=== PATIENT | female | born 1970 | race Caucasian/White ===

== ENCOUNTER 2023-02-02 14:09 | Observation (INO) | payer SELFPAY ==
[2023-02-02 15:03] LABS: Bilirubin Neg (Negative); Blood, Urine Negative (Negative); Clarity Clear (Clear); Glucose, Urine (Dipstick) Normal (Negative); Ketone, Urine Negative (Negative); Leukocyte 500 (Negative); Nitrite Negative (Negative); Protein, Urine (Dipstick) Negative (Neg-Trace); Urobilinogen Normal mg/dL (Less than 2)
[2023-02-02 15:27] LABS: Bacteria/HPF 3+ HPF (None Seen); CAUTI Indications for Culture Pelvic or flank pain; RBC/HPF 0-3 HPF (0-3); Squamous Epithelial 0-3 HPF (0-3); WBC/HPF 21-50 HPF (0-3)
[2023-02-02 15:28] LABS: Urine Culture Reflex Yes Yes
[2023-02-02 16:12] LABS: #Basophils 0.1 10x3/uL (0.0-0.2); #Monocytes 0.4 10x3/uL (0.0-1.1); #Neutrophils 5.4 10x3/uL (1.5-8.4); %Basophils 0.7 % (0.0-2.0); %Eosinophils 0.6 % (0.0-6.0); %Lymphocytes 16.9 % (18.0-47.0); %Monocytes 6.2 % (0.0-10.0); %Neutrophils 75.2 % (40.0-75.0); Hematocrit 42.5 % (34.9-44.5); Hemoglobin 14.7 g/dL (12.0-15.5); Mean Corpuscular HGB CONC 34.6 g/dL (32.0-36.0); Mean Corpuscular Hemoglobin 33.6 pg (27.0-33.0); Mean Corpuscular Volume 97.3 fl (81.6-98.3); Mean Platelet Volume 9.7 fl (7.4-10.4); Platelet Count 212 10x3/uL (150-450); RBC Distribution Width 12.9 % (11.5-14.5); Red Blood Cell (RBC) Count 4.37 10x6/uL (3.90-5.03); White Blood Cell (WBC) Count 7.1 10x3/uL (3.5-10.5)
[2023-02-02 16:25] LABS: ALT (SGPT) 22 U/L (8-55); AST (SGOT) 31 U/L (5-34); Albumin 4.8 g/dL (3.5-5.0); Alcohol 158.5 mg/dL (Less than 10); Alkaline Phosphatase 90 U/L (40-110); Anion Gap 21 mmol/L (10-20); BUN (Urea Nitrogen) 10 mg/dL (9.8-20.1); Bilirubin, Total 0.4 mg/dL (0.2-1.2); Calc. Creatinine Clearance 0 mL/min (70-130); Calcium 9.7 mg/dL (7.8-10.44); Carbon Dioxide 20 mmol/L (22-29); Chloride 103 mmol/L (98-107); Estimated GFR 89; Globulin 3.3 g/dL (2.4-3.5); Glucose 89 mg/dL (70-105); Potassium 4.1 mmol/L (3.5-5.1); Protein, Total 8.1 g/dL (6.0-8.3); Sodium 140 mmol/L (136-145)
[2023-02-02] MEDS ORDERED: cefTRIAXone (ROCEPHIN) 1 GM VIAL ONE (17:23)
[2023-02-02] MEDS ORDERED: Lorazepam 2 MG/ML VIAL ONE (18:13)
[2023-02-02 18:18] LABS: Magnesium 2.1 mg/dL (1.6-2.6)
[2023-02-02] MEDS ORDERED: Lorazepam 2 MG/ML VIAL IM PRN (19:12)
[2023-02-02] MEDS ORDERED: Lorazepam 1 MG TAB PO PRN (19:12)
[2023-02-02] MEDS ORDERED: Ondansetron ODT 4 MG TAB PO PRN ×2 (19:12→19:15)
[2023-02-02] MEDS ORDERED: Acetaminophen 325 MG TAB PO PRN (19:15)
[2023-02-02] MEDS ORDERED: Acetaminophen 650 MG Suppository PR PRN (19:15)
[2023-02-02] MEDS ORDERED: Electrolyte Replacement Protocol 1 EACH FS SCH (19:15)
[2023-02-02] MEDS ORDERED: Ondansetron PF 4 MG/2 ML Vial IVP PRN (19:15)
[2023-02-02] MEDS ORDERED: Lorazepam 2 MG/ML VIAL SLOW IVP PRN (19:15)
[2023-02-02] MEDS ORDERED: Senokot S 8.6-50 MG TAB PO PRN (19:15)
[2023-02-02 19:42] VITALS: BMI 22.1
[2023-02-02 19:46] LABS: Amphetamine Detected (NotDetected); Barbiturates Screen Not Detected (NotDetected); Benzodiazepine Screen Detected (NotDetected); Cocaine Metabolite Screen Not Detected (NotDetected); Methadone Not Detected (NotDetected); Methamphetamine Not Detected (NotDetected); Opiate Screen Not Detected (NotDetected); Oxycodone Screen Not Detected (NotDetected); Phencyclidine (PCP) Not Detected (NotDetected); THC/Cannabinoid Screen Not Detected (NotDetected); Tricyclic Screen Not Detected (NotDetected)
[2023-02-02] MEDS: Sodium Chloride 0.9% 1,000 ML IV SCH (20:20)
[2023-02-02] MEDS: Lorazepam 1 MG TAB PO SCH (20:20)
[2023-02-02] MEDS ORDERED: LevoFLOXacin 750 mg/D5W 750 MG in Premix Bag 1 BAG IVPB SCH (21:00)
[2023-02-02] MEDS ORDERED: Multivit, Therapeutic 1 TAB PO SCH (21:00)
[2023-02-02] MEDS ORDERED: Thiamine HCl 200 MG/2 ML VIAL SLOW IVP SCH (21:00)
[2023-02-02] MEDS ORDERED: Folic Acid 1 MG TAB PO SCH (21:00)
[2023-02-02] MEDS ORDERED: Pantoprazole 40 MG VIAL IVP SCH (21:00)
[2023-02-03] MEDS ORDERED: Lorazepam 2 MG/ML VIAL SLOW IVP SCH ×2 (02:45)
[2023-02-03] MEDS ORDERED: Atenolol 25 MG TAB PO SCH ×2 (02:45→09:00)
[2023-02-03] MEDS: Lorazepam 1 MG TAB PO SCH ×2 (03:45→09:18)
[2023-02-03] MEDS: Sodium Chloride 0.9% 1,000 ML IV SCH (05:20)
[2023-02-03 05:40] LABS: Magnesium 1.8 mg/dL (1.6-2.6); Phosphorus 1.9 mg/dL (2.3-4.7)
[2023-02-03] MEDS ORDERED: Magnesium 2 GM/50 ML(in water) 2 GM in Premix Bag 1 BAG IVPB SCH (08:00)
[2023-02-03] MEDS ORDERED: Multivit, Therapeutic 1 TAB PO SCH (09:00)
[2023-02-03] MEDS ORDERED: Folic Acid 1 MG TAB PO SCH (09:00)
[2023-02-03] MEDS ORDERED: PHOS-NAK 1 PKT PACK PO SCH (09:00)
[2023-02-03 11:53] VITALS: BP 164/102; TEMP 98.4
[2023-02-03] MEDS ORDERED: Lorazepam 1 MG TAB PO PRN (19:12)
[2023-02-04] MEDS ORDERED: Lorazepam 1 MG TAB PO PRN (19:12)
[2023-02-04] MEDS ORDERED: Lorazepam 0.5 MG TAB PO SCH (21:00)
[2023-02-05] MEDS ORDERED: Lorazepam 0.5 MG TAB PO PRN (19:12)
[2023-02-05] MEDS ORDERED: Thiamine 100 MG TAB PO SCH (21:00)
== END 2023-02-03 12:28 | disposition home or self-care (01) ==
LOC: CSHERS 14:09 → CSHTELE 19:38
PROVIDERS: ADMIT Emergency Medicine; ATTEND Internal Medicine
DX: N30.00 Acute cystitis without hematuria (principal); I34.0 Nonrheumatic mitral (valve) insufficiency; F41.9 Anxiety disorder, unspecified; F32.A Depression, unspecified; F10.20 Alcohol dependence, uncomplicated; F17.210 Nicotine dependence, cigarettes, uncomplicated; F12.90 Cannabis use, unspecified, uncomplicated; E87.20 Acidosis, unspecified; F90.9 Attention-deficit hyperactivity disorder, unspecified type; E83.39 Other disorders of phosphorus metabolism; Z88.1 Allergy status to other antibiotic agents; Z79.899 Other long term (current) drug therapy; Z87.59 Personal history of other complications of pregnancy, childbirth and the puerperium; Z90.49 Acquired absence of other specified parts of digestive tract; Y90.8 Blood alcohol level of 240 mg/100 ml or more
CPT/HCPCS: 36415; 80053; 80306; 80307; 81001; 83735; 84100; 85025; 87077; 87086; 87186; 93005; 94760; 96365; 96366; 96372; 96375; 96376; C9113; G0378; J0696; J1650; J1956; J2060; J3411; J3475; J7050